=== PATIENT | female | born 1950 | race Caucasian/White ===

== ENCOUNTER → 2018-03-09 | Outpatient (CLI) | payer MEDICARE, OTHER ==
[~2018-03-09] MED LIST: ASP81TEC PO; C250T PO; CALC-697 PO; DCS100C PO; ESTR0.7510 PO; HCT25T PO; IBP600T1 PO; LSNP20T PO; METO-272 PO; MINO75CA PO; MULT1CAP27 PO; NF-LOVAZAC PO; OMEP-10 PO; TRIPLIX PO; TRM50T PO
--- NOTE | 2018-03-09 12:45 | Diagnostic Imaging Report ---
Indication: Right shoulder injury after a fall. Three views of the right shoulder show no fracture, dislocation or other acute abnormalities. Impression: Negative right shoulder. Dictated by: Dictated on workstation # [id number]
--- NOTE | 2018-03-09 12:49 | Diagnostic Imaging Report ---
Indication: Chest pain after fall. PA and lateral chest Heart size and pulmonary vascularity normal. Lungs are clear. There are no effusions or pneumothoraces. Impression: Negative chest Dictated by: Dictated on workstation # [id number]
== END ==
LOC: RAD 11:43
PROVIDERS: ATTEND Nurse Practitioner Family
DX: S49.91XA Unspecified injury of right shoulder and upper arm, initial encounter (principal); R07.9 Chest pain, unspecified; W19.XXXA Unspecified fall, initial encounter
CPT/HCPCS: 71046; 73030

== ENCOUNTER → 2018-05-01 | Outpatient (CLI) | payer MEDICARE, OTHER ==
[2018-05-01 14:44] LABS: BASOPHILS % (AUTO) 0 % (0-10); EOSINOPHILS # (AUTO) 0.3 10^3/uL (0.0-0.3); EOSINOPHILS % (AUTO) 3 % (0-10); HEMATOCRIT 38 % (35-52); HEMOGLOBIN 13.2 G/DL (11.5-16.0); LYMPHOCYTES # (AUTO) 2.9 X 10^3 (1.0-4.0); LYMPHOCYTES % (AUTO) 27 % (12-44); MEAN CORPUSCULAR HEMOGLOBIN 33 PG (25-34); MEAN CORPUSCULAR HGB CONC 35 G/DL (32-36); MEAN CORPUSCULAR VOLUME 95 FL (80-99); MEAN PLATELET VOLUME 10.7 FL (7.4-10.4); MONOCYTES # (AUTO) 0.8 X 10^3 (0.0-1.0); MONOCYTES % (AUTO) 8 % (0-12); NEUTROPHILS # (AUTO) 6.6 X 10^3 (1.8-7.8); NEUTROPHILS % (AUTO) 63 % (42-75); PLATELET COUNT 306 10^3/uL (130-400); RED BLOOD COUNT 3.98 10^6/uL (4.35-5.85); RED CELL DISTRIBUTION WIDTH 12.7 % (10.0-14.5); WHITE BLOOD COUNT 10.6 10^3/uL (4.3-11.0)
[2018-05-01 15:04] LABS: BILIRUBIN,TOTAL 0.5 MG/DL (0.1-1.0); CALCIUM 10.2 MG/DL (8.5-10.1); CREATININE SERUM 1.17 MG/DL (0.60-1.30); POTASSIUM 4.5 MMOL/L (3.6-5.0); TOTAL PROTEIN 7.8 GM/DL (6.4-8.2)
[2018-05-01 15:05] LABS: ERYTHROCYTE SEDIMENTATION RATE 40 MM/HR (0-30)
[2018-05-01 15:09] LABS: BASOPHILS % (MANUAL) 3 %; EOSINOPHILS % (MANUAL) 2 %; LYMPHOCYTES % (MANUAL) 28 %; MONOCYTES % (MANUAL) 6 %; NEUTROPHILS % (MANUAL) 61 %
[2018-05-01 15:10] LABS: RBC MORPH NORMAL
[2018-05-01 15:25] LABS: FREE T4 (FREE THYROXINE) 1.31 NG/DL (0.70-1.48)
== END ==
LOC: LAB 13:48
PROVIDERS: ATTEND Family Medicine
DX: R53.83 Other fatigue (principal); R74.8 Abnormal levels of other serum enzymes; E56.9 Vitamin deficiency, unspecified; M25.50 Pain in unspecified joint
CPT/HCPCS: 36415; 80053; 82306; 84155; 84165; 84166; 84439; 84443; 85007; 85027; 85652

== ENCOUNTER → 2018-05-04 | Outpatient (CLI) | payer MEDICARE, OTHER | LOC: LAB 07:12 | PROVIDERS: ATTEND Family Medicine | DX: E83.52 Hypercalcemia (principal) | CPT/HCPCS: 36415; 83970 ==

== ENCOUNTER → 2018-05-11 | Outpatient (CLI) | payer MEDICARE, OTHER ==
--- NOTE | 2018-05-11 12:09 | Diagnostic Imaging Report ---
INDICATION: Elevated alkaline phosphatase, high calcium count. TECHNIQUE: Skeletal survey CORRELATION STUDY: None FINDINGS: CALVARIUM: No lesion demonstrated. SPINE: Multilevel degenerative changes as well as mild scoliotic curvature. Slight eccentric thoracic kyphotic curvature with minimal anterior wedging of midthoracic vertebral bodies. THORAX: Negative chest SHOULDERS GIRDLES/UPPER EXTREMITIES: No lesion demonstrated. Advanced degenerative changes about the wrist particularly at the right radiocarpal row. PELVIS: No lesion demonstrated. LOWER EXTREMITIES: Mild degenerative changes bilateral hips. Degenerative change of the knees. There is suggestion of lucency and subcortical reaction at the proximal right fibula suspect for subacute to chronic fracture deformity. IMPRESSION: 1. No demonstrated lesion. 2. Findings at the proximal right fibula could be reflective of a subacute to chronic- appearing fracture deformity. Clinical correlation recommended. Dictated by: Dictated on workstation # [id number]
== END ==
LOC: RAD 09:43
PROVIDERS: ATTEND Family Medicine
DX: M89.8X9 Other specified disorders of bone, unspecified site (principal)
CPT/HCPCS: 77075

== ENCOUNTER → 2018-07-13 | Outpatient (CLI) | payer MEDICARE, OTHER | LOC: RAD 09:24 | PROVIDERS: ATTEND Family Medicine | DX: M25.511 Pain in right shoulder (principal); Z53.8 Procedure and treatment not carried out for other reasons ==

== ENCOUNTER → 2018-07-21 | Outpatient (CLI) | payer MEDICARE, OTHER ==
--- NOTE | 2018-07-21 17:13 | Diagnostic Imaging Report ---
PROCEDURE: MRI right joint upper extremity without contrast. TECHNIQUE: Multiplanar, multisequence non contrast-enhanced MRI of the right upper extremity was accomplished. INDICATION: Shoulder pain. FINDINGS: There are no previous MRI examinations available for comparison. The plain film examination of the right shoulder performed on 03/09/2018 failed to show any sign of an acute abnormality. On the T2 coronal series of this exam, there are vague small areas of altered signal within the substance of the rotator cuff. I suspect these findings are more likely due to tendinosis than to a tear. However, the anterior-most portion of the rotator cuff does seem thinned and irregular, and I do suspect that there is a partial tear in this region. The supraspinatus muscle itself is not retracted or bunched. There is hypertrophy of the acromioclavicular joint, and this does result in narrowing of the outlet for the supraspinatus muscle. There is also a trace amount of fluid in subacromial-subdeltoid bursa indicating there is mild inflammation present. The biceps tendon and the subscapular tendon are intact. The labrum is thinned posteriorly and most likely torn on a degenerative basis. There is no evidence for a joint effusion. There is no abnormal signal arising from the osseous structures to suggest bone edema or a fracture. IMPRESSION: 1. The anterior-most insertion of the rotator cuff is torn. However, the supraspinatus muscle is not retracted or bunched. 2. There is hypertrophy of the acromioclavicular joint, and this does result in narrowing of the outlet for the supraspinatus muscle. 3. The labrum is thinned posteriorly and most likely torn on a degenerative basis. 4. There is no evidence for an acute bony abnormality. Dictated by: Dictated on workstation # [id number]
== END ==
LOC: RAD 15:42
PROVIDERS: ATTEND Orthopaedic Surgery
DX: M75.101 Unspecified rotator cuff tear or rupture of right shoulder, not specified as traumatic (principal); M25.811 Other specified joint disorders, right shoulder; M62.89 Other specified disorders of muscle
CPT/HCPCS: 73221

== ENCOUNTER → 2019-01-10 | Outpatient (CLI) | payer MEDICARE, OTHER ==
[2019-01-10 08:09] LABS: ALBUMIN 3.7 GM/DL (3.2-4.5); BILIRUBIN,DIRECT 0.3 MG/DL (0.0-0.3); BILIRUBIN,INDIRECT 0.4 MG/DL; BILIRUBIN,TOTAL 0.7 MG/DL (0.1-1.0); TOTAL PROTEIN 7.2 GM/DL (6.4-8.2)
== END ==
LOC: LAB 07:36
PROVIDERS: ATTEND Internal Medicine Gastroenterology
DX: R93.89 Abnormal findings on diagnostic imaging of other specified body structures (principal)
CPT/HCPCS: 36415; 80076

== ENCOUNTER → 2019-03-12 | Outpatient (CLI) | payer MEDICARE, OTHER ==
[2019-03-12 10:26] LABS: BILIRUBIN,DIRECT 0.3 MG/DL (0.0-0.3); BILIRUBIN,INDIRECT 0.3 MG/DL; BILIRUBIN,TOTAL 0.6 MG/DL (0.1-1.0); TOTAL PROTEIN 7.9 GM/DL (6.4-8.2)
== END ==
LOC: LAB 09:39
PROVIDERS: ATTEND Internal Medicine Gastroenterology
DX: R93.89 Abnormal findings on diagnostic imaging of other specified body structures (principal)
CPT/HCPCS: 36415; 80076

== ENCOUNTER 2019-03-15 09:11 | Outpatient (CLI) | payer MEDICARE, OTHER ==
[~2019-03-15] VITALS: Ht 175.3 cm; Wt 93.2 kg
[2019-03-15 09:51] VITALS: BP 136/68
[2019-03-15 10:42] LABS: BASOPHILS # (AUTO) 0.1 10^3/uL (0.0-0.1); BASOPHILS % (AUTO) 1 % (0-10); EOSINOPHILS # (AUTO) 0.2 10^3/uL (0.0-0.3); EOSINOPHILS % (AUTO) 2 % (0-10); HEMATOCRIT 39 % (35-52); HEMOGLOBIN 12.8 G/DL (11.5-16.0); LYMPHOCYTES # (AUTO) 2.1 X 10^3 (1.0-4.0); LYMPHOCYTES % (AUTO) 19 % (12-44); MEAN CORPUSCULAR HEMOGLOBIN 31 PG (25-34); MEAN CORPUSCULAR HGB CONC 33 G/DL (32-36); MEAN CORPUSCULAR VOLUME 95 FL (80-99); MEAN PLATELET VOLUME 10.9 FL (7.4-10.4); MONOCYTES # (AUTO) 0.8 X 10^3 (0.0-1.0); MONOCYTES % (AUTO) 7 % (0-12); NEUTROPHILS # (AUTO) 7.8 X 10^3 (1.8-7.8); NEUTROPHILS % (AUTO) 72 % (42-75); PLATELET COUNT 304 10^3/uL (130-400); RED CELL DISTRIBUTION WIDTH 12.6 % (10.0-14.5); WHITE BLOOD COUNT 10.9 10^3/uL (4.3-11.0)
== END 2019-03-15 11:51 | disposition home or self-care (01) ==
LOC: PREOP 09:11
PROVIDERS: ATTEND Surgery
DX: Z01.812 Encounter for preprocedural laboratory examination (principal); Z11.2 Encounter for screening for other bacterial diseases; K43.2 Incisional hernia without obstruction or gangrene
CPT/HCPCS: 36415; 85025; 87081

== ENCOUNTER → 2020-06-16 | Outpatient (CLI) | payer MEDICARE, OTHER ==
[~2020-06-16] MED LIST changes: +ACHD5005 PO; +DOCU-143 PO
--- NOTE | 2020-06-16 11:20 | Diagnostic Imaging Report ---
INDICATION: Diarrhea and vomiting as well as weakness. TIME OF EXAM: 10:39 AM Comparison is made with prior chest from 03/09/2018. FINDINGS: The heart size is normal. The pulmonary vascularity is unremarkable. The lungs are clear. No infiltrate, effusion or pneumothorax is detected. IMPRESSION: No acute cardiopulmonary process is detected. Dictated by: Dictated on workstation # [id number]
--- NOTE | 2020-06-16 11:26 | Diagnostic Imaging Report ---
INDICATION: Diarrhea and vomiting as well as weakness. TIME OF EXAM: 10:41 AM. FINDINGS: The bowel gas pattern is unremarkable. No bowel obstruction is identified. No free air is detected. No pathologic calcifications are identified. IMPRESSION: No acute abnormality is detected. Dictated by: Dictated on workstation # [id number]
== END ==
LOC: RAD 10:18
PROVIDERS: ATTEND Nurse Practitioner Family
DX: R19.7 Diarrhea, unspecified (principal); R11.10 Vomiting, unspecified; R53.1 Weakness; R10.9 Unspecified abdominal pain; R05 Cough
CPT/HCPCS: 71046; 74019

== ENCOUNTER 2020-06-17 16:36 | Outpatient (CLI) | payer MEDICARE, OTHER ==
[~2020-06-17] VITALS: Ht 172.7 cm; Wt 85.5 kg
[2020-06-17] MEDS ORDERED: NS IV 1000 ML 1,000 ML ONE (17:26)
--- NOTE | 2020-06-17 17:26 | Diagnostic Imaging Report ---
PROCEDURE: CT abdomen and pelvis without contrast. TECHNIQUE: Multiple contiguous axial images were obtained through the abdomen and pelvis without the use of intravenous contrast. Auto Exposure Controls were utilized during the CT exam to meet ALARA standards for radiation dose reduction. INDICATION: Midabdominal pain with dehydration and diarrhea for two weeks. COMPARISON: Correlation is made with prior CT from 09/08/2012. FINDINGS: The lung bases are clear. No discrete liver mass is identified. There is some mild distention to the gallbladder but no definite gallstones are identified. There is no biliary ductal dilatation. Pancreas and spleen are unremarkable. Right adrenal gland is unremarkable. The low-density lesions within the left adrenal gland are again noted and again suggestive of adenomas. There are cortical low densities involving bilateral kidneys, likely representing cysts. The largest on the lateral aspect of the left kidney is slightly increased measuring 2.4 cm compared with 1.9 cm. No calculi are detected. There is no hydronephrosis. Aorta is calcified but nonaneurysmal. Bowel loops are normal in caliber. There is no obstruction. There are postsurgical changes near the rectosigmoid junction. There is some mild diverticulosis of the sigmoid and descending colon but no evidence of acute diverticulitis. No free fluid is seen. There is no fluid collection. Bladder is decompressed. The bony structures are nonacute. IMPRESSION: 1. Bilateral renal cysts. 2. Uncomplicated diverticulosis. 3. Mildly prominent gallbladder. If there is concern for gallbladder pathology, gallbladder ultrasound would be useful for further evaluation. No other significant abnormality is seen. Dictated by: Dictated on workstation # [id number]
[2020-06-17 17:45] VITALS: BP 123/71
[2020-06-17] MEDS ORDERED: NS IV 1000 ML 1,000 ML IV SCH (17:45)
== END 2020-06-17 19:05 | disposition home or self-care (01) ==
LOC: SDC 16:36
PROVIDERS: ATTEND Family Medicine
DX: E86.0 Dehydration (principal); K57.30 Diverticulosis of large intestine without perforation or abscess without bleeding; N28.1 Cyst of kidney, acquired
CPT/HCPCS: 74176; 96360

== ENCOUNTER 2020-06-24 05:35 | Outpatient (CLI) | payer MEDICARE, OTHER ==
[~2020-06-24] VITALS: Ht 175.3 cm; Wt 85.9 kg
[2020-06-24] MEDS ORDERED: ATOR20TA66 PO (12:07)
[2020-06-24] MEDS ORDERED: LISI1TAB46 PO (12:07)
[2020-06-24] MEDS ORDERED: CALC-904 PO (12:07)
[2020-06-24] MEDS ORDERED: METO50TA7 PO (12:07)
[2020-06-24] MEDS ORDERED: ASCO500T7 PO (12:07)
[2020-06-24] MEDS ORDERED: MULT-567 PO (12:07)
[2020-06-24] MEDS ORDERED: ESTR1TAB24 PO (12:07)
[2020-06-24] MEDS ORDERED: CETI10TA17 PO (12:07)
[2020-06-24] MEDS ORDERED: ZINC50TA58 PO (12:07)
[2020-06-24] MEDS ORDERED: OMEP40CA27 PO (12:07)
[2020-06-24] MEDS ORDERED: ASPI-999 PO (12:07)
== END 2020-06-24 12:25 | disposition home or self-care (01) ==
LOC: PREOP 05:35
PROVIDERS: ATTEND Surgery
DX: Z01.818 Encounter for other preprocedural examination (principal)

== ENCOUNTER → 2020-12-09 | Outpatient (CLI) | payer MEDICARE, OTHER ==
[~2020-12-09] MED LIST changes: +ASCO500T7 PO; +ASPI-999 PO; +ATOR20TA66 PO; +CALC-904 PO; +CETI10TA17 PO; +ESTR1TAB24 PO; +LISI1TAB46 PO; +METO50TA7 PO; +MULT-567 PO; +OMEP40CA27 PO; +ZINC50TA58 PO
[2020-12-09 15:30] LABS: BASOPHILS # (AUTO) 0.1 10^3/uL (0.0-0.1); BASOPHILS % (AUTO) 0 % (0-10); EOSINOPHILS # (AUTO) 0.1 10^3/uL (0.0-0.3); EOSINOPHILS % (AUTO) 1 % (0-10); HEMATOCRIT 36 % (35-52); HEMOGLOBIN 11.6 g/dL (11.5-16.0); LYMPHOCYTES # (AUTO) 2.2 X 10^3 (1.0-4.0); LYMPHOCYTES % (AUTO) 13 % (12-44); MEAN CORPUSCULAR HEMOGLOBIN 30 pg (25-34); MEAN CORPUSCULAR HGB CONC 32 g/dL (32-36); MEAN CORPUSCULAR VOLUME 93 fL (80-99); MEAN PLATELET VOLUME 9.9 fL (9.0-12.2); MONOCYTES # (AUTO) 0.9 X 10^3 (0.0-1.0); MONOCYTES % (AUTO) 5 % (0-12); NEUTROPHILS # (AUTO) 13.9 X 10^3 (1.8-7.8); NEUTROPHILS % (AUTO) 81 % (42-75); PLATELET COUNT 409 10^3/uL (130-400); WHITE BLOOD COUNT 17.2 10^3/uL (4.3-11.0)
[2020-12-09 15:41] LABS: BAND NEUTROPHILS 2 %; BASOPHILS % (MANUAL) 1 %; EOSINOPHILS % (MANUAL) 1 %; LYMPHOCYTES % (MANUAL) 15 %; MONOCYTES % (MANUAL) 2 %; NEUTROPHILS % (MANUAL) 79 %; RBC MORPH NORMAL
[2020-12-09 19:06] LABS: ERYTHROCYTE SEDIMENTATION RATE 122 MM/HR (0-30)
== END ==
LOC: LAB 15:05
PROVIDERS: ATTEND Family Medicine
DX: D72.829 Elevated white blood cell count, unspecified (principal)
CPT/HCPCS: 36415; 85007; 85027; 85652; 86141

== ENCOUNTER → 2020-12-11 | Outpatient (CLI) | payer MEDICARE, OTHER ==
--- NOTE | 2020-12-11 15:44 | Diagnostic Imaging Report ---
PROCEDURE: US gallbladder. TECHNIQUE: Multiple real-time grayscale images were obtained over the right upper quadrant in various projections. INDICATION: Right upper quadrant pain. FINDINGS: Liver is normal in size at 14 cm. Gallbladder does contain a small amount of sludge. No wall thickening is seen. There is no pericholecystic fluid detected. Extrahepatic bile duct is minimally prominent at 8 mm. Pancreas unremarkable. Aorta is nonaneurysmal. IVC is patent. Right kidney does contain a 17 mm x 20 mm cyst in the upper pole. No calculi or hydronephrosis is seen. There is no ascites. IMPRESSION: 1. Gallbladder sludge without evidence of gallstone or acute cholecystitis. 2. Right renal cyst. Dictated by: Dictated on workstation # [id number]
== END ==
LOC: RAD 14:14
PROVIDERS: ATTEND Internal Medicine Hematology & Oncology
DX: N28.1 Cyst of kidney, acquired (principal); K82.8 Other specified diseases of gallbladder
CPT/HCPCS: 76705

== ENCOUNTER 2020-12-16 05:41 | Outpatient (CLI) | payer MEDICARE, OTHER ==
[~2020-12-16] VITALS: Ht 175.3 cm; Wt 80.5 kg
[2020-12-16] MEDS ORDERED: URSO250T12 PO ×2 (14:33)
[2020-12-16] MEDS ORDERED: VITA400T7 PO ×2 (14:35)
== END 2020-12-16 14:50 | disposition home or self-care (01) ==
LOC: PREOP 05:41
PROVIDERS: ATTEND Surgery
DX: Z01.818 Encounter for other preprocedural examination (principal)

== ENCOUNTER 2020-12-18 09:04 | Day surgery (SDC) | payer MEDICARE, OTHER ==
[~2020-12-18] VITALS: Ht 175.3 cm; Wt 80.5 kg
[2020-12-18] VITALS (11 sets, daily range): BP systolic 98–145; BP diastolic 45–69
[~2020-12-18 09:04] MED LIST changes: +URSO250T12 PO; +VITA400T7 PO
[2020-12-18] MEDS ORDERED: fentaNYL INJ 100 MCG/2 ML AMP ONE (09:14)
[2020-12-18] MEDS ORDERED: proPOfol 200 MG/20 ML (DIPRIVAN) VIAL IV ONE (09:14)
[2020-12-18] MEDS ORDERED: ONDANSETRON 4 MG/2 ML (SDV) Z0FRAN ONE (09:14)
[2020-12-18] MEDS ORDERED: LIDOCAINE PF 2% 5 ML (XYLOCAINE) VIAL ONE (09:14)
[2020-12-18] MEDS ORDERED: ROCURONIUM 10 MG/ML 5 ML SYRINGE IV ONE (09:17)
[2020-12-18] MEDS ORDERED: SEVOFLURANE (ULTANE) 15 ML INHAL SOLN ONE ×2 (09:17→11:33)
[2020-12-18] MEDS ORDERED: IOPAMIDOL 61% 30 ML (ISOVUE 300) VIAL ONE (09:23)
[2020-12-18] MEDS: LACTATED RINGERS 1,000 ML IV PRN ×2 (09:29→10:35)
[2020-12-18] MEDS ORDERED: CLINDAMYCIN 600 MG/50 ML IVPB 50 ML IV ONE (09:30)
[2020-12-18] MEDS ORDERED: MIDAZOLAM 2 MG/2 ML (VERSED) VIAL ONE (09:59)
[2020-12-18] MEDS ORDERED: LIDOCAINE/EPI 1%-1:100,000 (XYLOCAINE) 20ML INJ ONE (10:00)
--- NOTE | 2020-12-18 10:03 | Progress Note-Pre Operative ---
Pre-Operative Progress Note H&P Reviewed The H&P was reviewed, patient examined and no changes noted. Date Seen by Provider: Dec 18, 2020 Time Seen by Provider: 10:03 Date H&P Reviewed: Dec 18, 2020 Time H&P Reviewed: 10:03 Pre-Operative Diagnosis: symptomatic cholelithiasis BELLA DELGADO DO Dec 18, 2020 10:03
[2020-12-18] MEDS ORDERED: GLYCOPYRROLATE 0.2 MG/ML (ROBINUL) 2 ML VIAL ONE (11:20)
[2020-12-18] MEDS ORDERED: NEOSTIGMINE 3 MG/3 ML VIAL ONE (11:20)
--- NOTE | 2020-12-18 11:31 | Progress Note-Post Operative ---
Post-Operative Progess Note Surgeon (s)/Deputy Clerk (s) Surgeon BELLA DELGADO DO Deputy Clerk: Dr. Alejandro to assist in retraction dissection and closure Pre-Operative Diagnosis symptomatic cholelithiasis Post-Operative Diagnosis symptomatic cholelithiasis and hydrops gallbladder Procedure & Operative Findings Date of Procedure 12/18/20 Procedure Performed/Findings PROCEDURE: Laparoscopic cholecystectomy with intraoperative cholangiogram. COMPLICATIONS: None. PROCEDURE: The patient was taken to the operating suite and was prepped and draped in sterile fashion. A surgical pause was performed. Left upper quadrant, a 12 mm incision was made. Dissection was taken down to the fascia, which was then scored and grasped with a Lennox and the abdomen was then entered. Pneumoperitoneum was achieved. A 5mm trochar place in the right upper quadrant. Multiple intrabdominal adhesions were taken down. A second 5 mm trocar was placed in the right upper quadrant and a 5 mm trocar was placed just above the umbilicus. The gallbladder was then grasped and elevated. It was dilated and small hole to decompress it. Clear fluid drained. The cystic duct, and cystic artery were then dissected out. Clip was placed on the distal portion of the cystic duct which was then partially transected. An arrow catheter was inserted into the duct. The cholangiogram was then performed. Appearing to have slight narrowing of the common bile duct and do to leakin of contrast difficult to get contrast into the hepatic ducts. No filing defects seen and contrast made its way into the duodenum. Catheter removed. Clips were placed on proximal portion of the cystic duct along with endoloop due to dilated cystic duct and then the duct was then transected. Clips were placed along the proximal and distal portion of the cystic artery which was then transected. Hook cautery was used to dissect the gallbladder from the gallbladder fossa achieving hemostasis. The gallbladder was placed in an Endobag and removed through the 12 mm trocar site. The abdomen was then reinspected. Copious amounts of irrigation were used to irrigate the abdomen and there were no signs of active bleeding. Hemostasis had been achieved. The 12 mm fascial defect was then closed with 0 Vicryl suture that had been placed in a [id number] fashion. The abdomen was then desufflated, the trocars were removed. The abdomen was then washed and dried. The skin was then closed using 4-0 Monocryl in a subcuticular fashion. The abdomen was washed and dried and Skin Affix was place over incisions. Patient tolerated the procedure well without any complications and was taken to the recovery room in stable condition. Anesthesia Type general Estimated Blood Loss Estimated blood loss (mL): minimal Specimens/Packing Specimens Removed gallbladder BELLA DELGADO DO Dec 18, 2020 11:31
[2020-12-18] MEDS ORDERED: ACHD5005 PO ×2 (11:35)
[2020-12-18] MEDS ORDERED: DOCU-143 PO ×2 (11:35)
--- NOTE | 2020-12-18 11:38 | Discharge Inst-Simple/Standard ---
Discharge Inst-Standard Discharge Medications New, Converted or Re-Newed RX: RX on Chart Patient Instructions/Follow Up Plan of Care/Instructions/FU: 2-3 weeks [place] Activity as Tolerated: No Discharge Diet: Regular Diet Other Inst to Patient Follow up Appt: Make appointment for 2-3 weeks. Instructions: No lifting greater than 10 pounds. No strenuous activity. May shower in 24 hours, no tub bath or soaking. Use incentive spirometer at home as directed. No Smoking Skin/Wound Care: You have special glue over incision, it will fall off on it's own. Symptoms to Report: Appetite Changes, Extremity Discoloration, Numbness/Tingling, Swelling Increased, Bleeding Excessive, Eyesight Changes, Pain Increased, Urine Color Change, Constipation(Persistent), Fever over 101 degree F, Pain/Pressure in chest, Urinating Difficulty, Cough Up/Vomit Blood, Heart Beat Irreg/Pounding, Pain/Pressure in jaw, Vaginal Bleeding Increase, Cramps in feet or legs, Lightheadedness, Pain/Pressure in shoulder, Diarrhea(Persistent), Memory Changes Suddenly, Questions/Concerns, Weight gain consecutive days, Dizziness/Fainting, Nausea/Vomiting, Shortness of Breath, Weight gain over 2 pounds. If eyes or skin turn yellow notify physician. If questions or concerns contact your physician Or seek help at emergency department. BELLA DELGADO DO Dec 18, 2020 11:38
[2020-12-18] MEDS ORDERED: HYDROmorphone 2 MG/ML VIAL (DILAUDID) IV ONE (11:45)
[2020-12-18] MEDS ORDERED: ONDANSETRON 4 MG/2 ML (SDV) Z0FRAN IVP PRN (11:45)
--- NOTE | 2020-12-18 13:07 | Diagnostic Imaging Report ---
INDICATION: Fluoroscopy during intraoperative cholangiogram. Fluoroscopy was provided in the OR during intraoperative cholangiogram. 30 seconds of fluoroscopic time was utilized. 60 images were obtained. There is poor opacification of the biliary system. There is some contrast within the 2nd portion of the duodenum. IMPRESSION: Fluoroscopy during intraoperative cholangiogram. Dictated by: Dictated on workstation # [id number]
--- NOTE | 2020-12-18 14:33 | Anesthesia-General Post-Op ---
General Patient Condition Mental Status/LOC: Same as Preop Cardiovascular: Satisfactory Nausea/Vomiting: Absent Respiratory: Satisfactory Pain: Controlled Complications: Absent Post Op Complications Complications None Follow Up Care/Instructions Patient Instructions None needed. Anesthesia/Patient Condition Patient Condition Patient is doing well, no complaints, stable vital signs, no apparent adverse anesthesia problems. No complications reported per nursing. D/C home per [facility] Criteria: Yes SHAUNNA MCCOY CRNA Dec 18, 2020 14:33
== END 2020-12-18 14:15 | disposition home or self-care (01) ==
LOC: SDC 09:04
PROVIDERS: ATTEND Surgery
DX: K80.10 Calculus of gallbladder with chronic cholecystitis without obstruction (principal); D13.5 Benign neoplasm of extrahepatic bile ducts; I10 Essential (primary) hypertension; I48.91 Unspecified atrial fibrillation; M19.90 Unspecified osteoarthritis, unspecified site; E66.9 Obesity, unspecified; Z68.26 Body mass index [BMI] 26.0-26.9, adult; Z79.82 Long term (current) use of aspirin; Z79.02 Long term (current) use of antithrombotics/antiplatelets; Z79.899 Other long term (current) drug therapy; Z88.1 Allergy status to other antibiotic agents; Z88.0 Allergy status to penicillin; Z90.710 Acquired absence of both cervix and uterus; Z87.891 Personal history of nicotine dependence; Z80.9 Family history of malignant neoplasm, unspecified
CPT/HCPCS: 76000; 87081; 88304

== ENCOUNTER 2021-01-22 12:25 | Outpatient (RCR) | payer MEDICARE, OTHER ==
[2020-12-11 14:07] LABS: BASOPHILS # (AUTO) 0.1 10^3/uL (0.0-0.1); BASOPHILS % (AUTO) 0 % (0-10); EOSINOPHILS # (AUTO) 0.2 10^3/uL (0.0-0.3); EOSINOPHILS % (AUTO) 1 % (0-10); HEMATOCRIT 37 % (35-52); LYMPHOCYTES # (AUTO) 2.2 10^3/uL (1.0-4.0); LYMPHOCYTES % (AUTO) 14 % (12-44); MEAN CORPUSCULAR HEMOGLOBIN 30 pg (25-34); MEAN CORPUSCULAR HGB CONC 32 g/dL (32-36); MEAN CORPUSCULAR VOLUME 92 fL (80-99); MEAN PLATELET VOLUME 10.1 fL (9.0-12.2); MONOCYTES % (AUTO) 7 % (0-12); NEUTROPHILS % (AUTO) 77 % (42-75); PLATELET COUNT 392 10^3/uL (130-400); WHITE BLOOD COUNT 15.6 10^3/uL (4.3-11.0)
[2021-01-22 12:53] LABS: BASOPHILS # (AUTO) 0.1 10^3/uL (0.0-0.1); BASOPHILS % (AUTO) 0 % (0-10); EOSINOPHILS # (AUTO) 0.2 10^3/uL (0.0-0.3); EOSINOPHILS % (AUTO) 1 % (0-10); HEMATOCRIT 33 % (35-52); HEMOGLOBIN 10.8 g/dL (11.5-16.0); LYMPHOCYTES # (AUTO) 2.4 10^3/uL (1.0-4.0); LYMPHOCYTES % (AUTO) 16 % (12-44); MEAN CORPUSCULAR HEMOGLOBIN 30 pg (25-34); MEAN CORPUSCULAR HGB CONC 32 g/dL (32-36); MEAN CORPUSCULAR VOLUME 92 fL (80-99); MEAN PLATELET VOLUME 9.9 fL (9.0-12.2); MONOCYTES # (AUTO) 0.9 10^3/uL (0.0-1.0); MONOCYTES % (AUTO) 6 % (0-12); NEUTROPHILS # (AUTO) 11.7 10^3/uL (1.8-7.8); NEUTROPHILS % (AUTO) 76 % (42-75); PLATELET COUNT 390 10^3/uL (130-400); WHITE BLOOD COUNT 15.3 10^3/uL (4.3-11.0)
== END 2021-03-11 | disposition home or self-care (01) ==
LOC: ONC 12:25
PROVIDERS: ATTEND Internal Medicine Hematology & Oncology
DX: D72.829 Elevated white blood cell count, unspecified (principal); K80.20 Calculus of gallbladder without cholecystitis without obstruction; Z79.02 Long term (current) use of antithrombotics/antiplatelets
CPT/HCPCS: 85025; G0463; 83615; 99213; 99214

== ENCOUNTER 2021-03-26 12:52 | Outpatient (RCR) | payer MEDICARE, OTHER ==
[~2021-03-26 12:52] MED LIST changes: -OMEP40CA27 PO; +OMEP40CA6 PO
[2021-03-26 13:02] LABS: BASOPHILS # (AUTO) 0.1 10^3/uL (0.0-0.1); BASOPHILS % (AUTO) 0 % (0-10); EOSINOPHILS % (AUTO) 0 % (0-10); HEMATOCRIT 35 % (35-52); HEMOGLOBIN 11.5 g/dL (11.5-16.0); LYMPHOCYTES # (AUTO) 1.7 10^3/uL (1.0-4.0); LYMPHOCYTES % (AUTO) 10 % (12-44); MEAN CORPUSCULAR HEMOGLOBIN 30 pg (25-34); MEAN CORPUSCULAR HGB CONC 33 g/dL (32-36); MEAN CORPUSCULAR VOLUME 92 fL (80-99); MEAN PLATELET VOLUME 10.2 fL (9.0-12.2); MONOCYTES # (AUTO) 0.8 10^3/uL (0.0-1.0); MONOCYTES % (AUTO) 5 % (0-12); NEUTROPHILS # (AUTO) 14.2 10^3/uL (1.8-7.8); NEUTROPHILS % (AUTO) 84 % (42-75); PLATELET COUNT 375 10^3/uL (130-400); WHITE BLOOD COUNT 16.9 10^3/uL (4.3-11.0)
== END 2021-04-17 09:39 | disposition home or self-care (01) ==
LOC: ONC 12:52
PROVIDERS: ATTEND Internal Medicine Hematology & Oncology
DX: D72.829 Elevated white blood cell count, unspecified (principal); I10 Essential (primary) hypertension; E66.9 Obesity, unspecified; Z79.899 Other long term (current) drug therapy; Z87.891 Personal history of nicotine dependence
CPT/HCPCS: 83615; 85025; G0463; 99213

== ENCOUNTER 2021-07-22 14:51 | Outpatient (RCR) | payer MEDICARE, OTHER ==
[2021-07-22 15:01] LABS: BASOPHILS # (AUTO) 0.1 10^3/uL (0.0-0.1); BASOPHILS % (AUTO) 0 % (0-10); EOSINOPHILS # (AUTO) 0.1 10^3/uL (0.0-0.3); EOSINOPHILS % (AUTO) 1 % (0-10); HEMATOCRIT 33 % (35-52); HEMOGLOBIN 11.1 g/dL (11.5-16.0); LYMPHOCYTES # (AUTO) 2.5 10^3/uL (1.0-4.0); LYMPHOCYTES % (AUTO) 13 % (12-44); MEAN CORPUSCULAR HEMOGLOBIN 31 pg (25-34); MEAN CORPUSCULAR HGB CONC 34 g/dL (32-36); MEAN CORPUSCULAR VOLUME 94 fL (80-99); MEAN PLATELET VOLUME 10.3 fL (9.0-12.2); MONOCYTES % (AUTO) 5 % (0-12); NEUTROPHILS # (AUTO) 14.7 10^3/uL (1.8-7.8); NEUTROPHILS % (AUTO) 80 % (42-75); PLATELET COUNT 350 10^3/uL (130-400); WHITE BLOOD COUNT 18.4 10^3/uL (4.3-11.0)
== END 2021-10-02 | disposition home or self-care (01) ==
LOC: ONC 14:51
PROVIDERS: ATTEND Internal Medicine Hematology & Oncology
DX: D72.829 Elevated white blood cell count, unspecified (principal); D64.9 Anemia, unspecified; E66.9 Obesity, unspecified
CPT/HCPCS: 85025; G0463; 99213

== ENCOUNTER → 2021-11-30 | Outpatient (CLI) | payer MEDICARE, OTHER ==
[~2021-11-30] MED LIST changes: +ACET-93 PO; +ATOR10TA66 PO; +CALC600T91 PO; +CHOL20002 PO; +DEXA1TAB PO; +DOCU100T2 PO; +ESTR0.5T PO; +HYOS0.1296 PO; +IBUP-1773 PO; +MECL-215 PO; +MTP100TCR PO; +MTP25TSR PO; +NYST1000 PO; +POLY17PO6 PO; +URSO300C3 PO; +VITA-189 PO; +VITA1CAP PO
[2021-11-30 16:35] LABS: BASOPHILS % (AUTO) 0 % (0-10); EOSINOPHILS # (AUTO) 0.1 10^3/uL (0.0-0.3); EOSINOPHILS % (AUTO) 0 % (0-10); HEMATOCRIT 36 % (35-52); HEMOGLOBIN 11.5 g/dL (11.5-16.0); LYMPHOCYTES # (AUTO) 1.4 10^3/uL (1.0-4.0); LYMPHOCYTES % (AUTO) 7 % (12-44); MEAN CORPUSCULAR HEMOGLOBIN 31 pg (25-34); MEAN CORPUSCULAR HGB CONC 32 g/dL (32-36); MEAN CORPUSCULAR VOLUME 97 fL (80-99); MEAN PLATELET VOLUME 10.3 fL (9.0-12.2); MONOCYTES % (AUTO) 5 % (0-12); NEUTROPHILS # (AUTO) 16.8 10^3/uL (1.8-7.8); NEUTROPHILS % (AUTO) 86 % (42-75); PLATELET COUNT 280 10^3/uL (130-400); WHITE BLOOD COUNT 19.4 10^3/uL (4.3-11.0)
[2021-11-30 16:36] LABS: BILIRUBIN,URINE NEGATIVE (NEGATIVE); CLARITY,URINE CLEAR; COLOR,URINE YELLOW; GLUCOSE, URINE (UA) NEGATIVE (NEGATIVE); KETONES,URINE NEGATIVE (NEGATIVE); LEUKOCYTE ESTERASE ,URINE NEGATIVE (NEGATIVE); NITRITE,URINE NEGATIVE (NEGATIVE); PROTEIN,URINE NEGATIVE (NEGATIVE)
--- NOTE | 2021-11-30 16:41 | Diagnostic Imaging Report ---
INDICATION: Left lower quadrant abdominal pain. COMPARISON: 06/16/2020. FINDINGS: Supine and upright views the abdomen demonstrate nonobstructive small bowel gas pattern. Moderate amount of air and stool are seen scattered throughout the colon. No abnormal air-fluid levels or large collection of free intraperitoneal air is seen. No abnormal extraosseous calcifications or radiopaque foreign bodies are identified. Bony structures are age-appropriate. IMPRESSION: 1. Nonobstructive small bowel gas pattern. 2. Moderate colonic air and stool. Please correlate for constipation. Dictated by: Dictated on workstation # [id number]
[2021-11-30 16:45] LABS: ALBUMIN 3.2 GM/DL (3.2-4.5)
[2021-11-30 16:46] LABS: POTASSIUM 3.3 MMOL/L (3.6-5.0)
[2021-11-30 16:47] LABS: CALCIUM 9.3 MG/DL (8.5-10.1)
[2021-11-30 16:48] LABS: TOTAL PROTEIN 7.2 GM/DL (6.4-8.2)
[2021-11-30 16:50] LABS: BILIRUBIN,TOTAL 0.7 MG/DL (0.1-1.0)
[2021-11-30 16:51] LABS: CREATININE SERUM 0.77 MG/DL (0.60-1.30)
[2021-11-30 18:46] LABS: BACTERIA,URINE FEW /HPF; SQUAMOUS EPITHELIAL CELL,UR 0-2 /HPF
[2021-11-30 19:39] LABS: LYMPHOCYTES % (MANUAL) 6 %; MONOCYTES % (MANUAL) 4 %; NEUTROPHILS % (MANUAL) 90 %; RBC MORPH NORMAL
[2021-11-30 19:41] LABS: ERYTHROCYTE SEDIMENTATION RATE 35 MM/HR (0-30)
== END ==
LOC: RAD 16:00
PROVIDERS: ATTEND Family Medicine
DX: R10.32 Left lower quadrant pain (principal)
CPT/HCPCS: 36415; 74019; 80053; 81000; 85007; 85027; 85652

== ENCOUNTER 2022-04-29 10:27 | Outpatient (RCR) | payer MEDICARE, OTHER | END 2022-05-02 | disposition home or self-care (01) | PROVIDERS: ATTEND Family Medicine | DX: R53.1 Weakness (principal); R53.81 Other malaise; I10 Essential (primary) hypertension ==

== ENCOUNTER 2022-05-17 08:32 | Outpatient (RCR) | payer MEDICARE, OTHER | END 2022-06-02 | disposition home or self-care (01) | PROVIDERS: ATTEND Family Medicine | DX: R53.1 Weakness (principal); R53.81 Other malaise; I10 Essential (primary) hypertension ==

== ENCOUNTER → 2022-08-23 | Outpatient (CLI) | payer MEDICARE, OTHER | LOC: WOUNDCARE 10:14 | PROVIDERS: ATTEND Family Medicine | DX: E44.0 Moderate protein-calorie malnutrition (principal); E55.9 Vitamin D deficiency, unspecified; L89.153 Pressure ulcer of sacral region, stage 3; K58.0 Irritable bowel syndrome with diarrhea; M62.81 Muscle weakness (generalized); R63.4 Abnormal weight loss; Z68.20 Body mass index [BMI] 20.0-20.9, adult | CPT/HCPCS: 11042; 82306; 82607; 82728; 82746; 83540; 83550; 84134; A6197; A6212; G0463; 36415 ==

== ENCOUNTER → 2022-08-30 | Outpatient (CLI) | payer MEDICARE, OTHER | LOC: WOUNDCARE 15:09 | PROVIDERS: ATTEND Family Medicine | DX: I96 Gangrene, not elsewhere classified (principal); L89.153 Pressure ulcer of sacral region, stage 3; E44.0 Moderate protein-calorie malnutrition; K58.0 Irritable bowel syndrome with diarrhea; E55.9 Vitamin D deficiency, unspecified; M62.81 Muscle weakness (generalized); R63.4 Abnormal weight loss; Z68.20 Body mass index [BMI] 20.0-20.9, adult | CPT/HCPCS: A6212; G0463; 99212 ==

== ENCOUNTER → 2022-09-06 | Outpatient (CLI) | payer MEDICARE, OTHER | LOC: WOUNDCARE 14:24 | PROVIDERS: ATTEND Family Medicine | DX: L89.153 Pressure ulcer of sacral region, stage 3 (principal); E44.0 Moderate protein-calorie malnutrition; K58.0 Irritable bowel syndrome with diarrhea; E55.9 Vitamin D deficiency, unspecified; M62.81 Muscle weakness (generalized); R63.4 Abnormal weight loss; I96 Gangrene, not elsewhere classified | CPT/HCPCS: 11042; A6212; G0463 ==

== ENCOUNTER → 2022-09-13 | Outpatient (CLI) | payer MEDICARE, OTHER | LOC: WOUNDCARE 13:19 | PROVIDERS: ATTEND Family Medicine | DX: L89.153 Pressure ulcer of sacral region, stage 3 (principal); E44.0 Moderate protein-calorie malnutrition; R63.4 Abnormal weight loss; K58.0 Irritable bowel syndrome with diarrhea; E55.9 Vitamin D deficiency, unspecified; M62.81 Muscle weakness (generalized); B37.2 Candidiasis of skin and nail; I96 Gangrene, not elsewhere classified | CPT/HCPCS: A6212; G0463; 99212 ==

== ENCOUNTER → 2022-09-21 | Outpatient (CLI) | payer MEDICARE, OTHER | LOC: WOUNDCARE 08:12 | PROVIDERS: ATTEND Family Medicine | DX: L89.153 Pressure ulcer of sacral region, stage 3 (principal); E44.0 Moderate protein-calorie malnutrition; R63.4 Abnormal weight loss; K58.0 Irritable bowel syndrome with diarrhea; E55.9 Vitamin D deficiency, unspecified; M62.81 Muscle weakness (generalized); I96 Gangrene, not elsewhere classified | CPT/HCPCS: 11042; 85652; 86141; A6212; G0463; 36415 ==

== ENCOUNTER → 2022-09-23 | Outpatient (CLI) | payer MEDICARE, OTHER ==
[~2022-09-23] MED LIST changes: +GADOTERATE 0.5 MMOL/ML (CLARISCAN) 15 ML VIAL IV ONE
--- NOTE | 2022-09-23 10:20 | Diagnostic Imaging Report ---
Procedure: MRI pelvis with and without contrast. Technique: Multiplanar, multisequence MRI of the pelvis was performed with and without contrast. Date: September 23, 2022. Indication: 72-year-old female, stage III ulcer. Evaluation for osteomyelitis. Comparison: CT abdomen and pelvis November 17, 2021. Findings: There is a skin defect posteriorly superficial to the coccyx. This does not directly contact bone. There is no T1 marrow signal loss or bone destruction. There is also no identified marrow edema. The sacroiliac joint spaces are well preserved without joint effusion or bone erosion. There is no ankylosis across either sacroiliac joint. There is an annular tear at L4-L5 with diffuse disc bulge. There appears to be mild bilateral foraminal narrowing at this level without high-grade spinal stenosis. There is no large hip joint effusion. There is no identified focal fluid collection or abscess. Impression: 1. Soft tissue ulcer posteriorly without evidence of osteomyelitis. 2. No identified focal fluid collection or abscess. Dictated by: Dictated on workstation # [id number]
== END ==
LOC: RAD 08:45
PROVIDERS: ATTEND Family Medicine
DX: L89.153 Pressure ulcer of sacral region, stage 3 (principal); E44.0 Moderate protein-calorie malnutrition; R63.4 Abnormal weight loss; K58.0 Irritable bowel syndrome with diarrhea; E55.9 Vitamin D deficiency, unspecified; M62.81 Muscle weakness (generalized)
CPT/HCPCS: 72197

== ENCOUNTER → 2022-09-28 | Outpatient (CLI) | payer MEDICARE, OTHER ==
[~2022-09-28] MED LIST changes: -GADOTERATE 0.5 MMOL/ML (CLARISCAN) 15 ML VIAL IV ONE
== END ==
LOC: WOUNDCARE 13:25
PROVIDERS: ATTEND Family Medicine
DX: I96 Gangrene, not elsewhere classified (principal); L89.153 Pressure ulcer of sacral region, stage 3; E44.0 Moderate protein-calorie malnutrition; R63.4 Abnormal weight loss; K58.0 Irritable bowel syndrome with diarrhea; E55.9 Vitamin D deficiency, unspecified; M62.81 Muscle weakness (generalized)
CPT/HCPCS: 99212

== ENCOUNTER → 2022-10-05 | Outpatient (CLI) | payer MEDICARE, OTHER | LOC: WOUNDCARE 13:25 | PROVIDERS: ATTEND Family Medicine | DX: E44.0 Moderate protein-calorie malnutrition (principal); K58.0 Irritable bowel syndrome with diarrhea; E55.9 Vitamin D deficiency, unspecified; M62.81 Muscle weakness (generalized); R63.4 Abnormal weight loss | CPT/HCPCS: 99212 ==

== ENCOUNTER → 2022-11-16 | Outpatient (CLI) | payer MEDICARE, OTHER ==
--- NOTE | 2022-11-16 14:42 | Diagnostic Imaging Report ---
PROCEDURE: CT abdomen and pelvis without contrast. TECHNIQUE: Multiple contiguous axial images were obtained through the abdomen and pelvis without the use of intravenous contrast. Auto Exposure Controls were utilized during the CT exam to meet ALARA standards for radiation dose reduction. INDICATION: Diffuse abdominal pain, weight loss and colitis. COMPARISON: Comparison is made with prior CT from 11/17/2021. FINDINGS: The lung bases are clear. The area of linear low attenuation involving the left lobe of liver seen previously has increased. This has the appearance of dilated biliary ducts in the left lobe. Right lobe the biliary system is unremarkable. There is minimal pneumobilia present. Pancreas and spleen are unremarkable. There is some low-density enlargement to the left adrenal gland, similar to prior exam, perhaps on the basis of adenoma. Right adrenal gland is unremarkable. Kidneys contain cortical low-attenuation lesions, consistent with cysts. There is also a nonobstructing calculus in the upper pole of the right kidney. Aorta is heavily calcified but nonaneurysmal. Bowel loops are normal in caliber. There are postop changes of the sigmoid colon. There is diverticulosis of the descending colon but no evidence of acute diverticulitis. No free fluid in the abdomen or pelvis is seen. Bladder is decompressed. Uterus is surgically absent. IMPRESSION: 1. Tubular cystic appearance to the left lobe of the liver suggestive of a markedly dilated left hepatic lobe biliary system. This has progressed significantly since the prior CT from one year earlier. An obstructive process or mass cannot be entirely excluded. Again, MRCP may be useful for further characterization. No discrete mass can be visualized on this noncontrast CT. 2. Bilateral renal cysts and nonobstructing right renal calculus. Dictated by: Dictated on workstation # [id number]
== END ==
LOC: RAD 11-15 16:11
PROVIDERS: ATTEND Family Medicine
DX: K76.89 Other specified diseases of liver (principal); N20.0 Calculus of kidney; N28.1 Cyst of kidney, acquired; K52.9 Noninfective gastroenteritis and colitis, unspecified; R63.4 Abnormal weight loss
CPT/HCPCS: 74176

== ENCOUNTER → 2022-11-23 | Outpatient (CLI) | payer MEDICARE, OTHER ==
--- NOTE | 2022-11-23 17:03 | Diagnostic Imaging Report ---
EXAMINATION: MRI of the abdomen without contrast. MRCP TECHNIQUE: Multiplanar, multisequence MR images of the abdomen were obtained without intravenous contrast including 3D MIP MRCP images. HISTORY: Dilated bile ducts. COMPARISON: None available. FINDINGS: Common bile duct is mildly dilated. There are several filling defects in the common bile duct measuring up to 9 mm. The ducts in the left lateral section are markedly dilated with a high-grade stricture or obstruction at the confluence of the ducts. The ducts in the central and right liver are irregular with areas of beading. There is infiltrative T1 low attenuation in the hepatic hilum and extending along the right hepatic ducts. There is diffusion restriction in the hepatic hilum. Gallbladder: Absent. Pancreas: Normal. Spleen: Normal. Adrenals: There are unchanged bilateral adrenal nodules. These show signal loss on opposed-phase imaging in keeping with adenomas. Kidneys: No suspicious lesions. No hydronephrosis. There are simple cysts in both kidneys. Bowel: Normal. Other: There is a 1.0 cm gastrohepatic lymph node. Visualized portions of the thorax are normal. No suspicious osseous lesions. IMPRESSION: 1. Markedly dilated left hepatic ducts with irregular ducts in the central and right distribution. There is severe stricture or obstruction of the proximal left hepatic duct. There is infiltrative low T1 signal and diffusion restriction in the hepatic hilum. Findings are highly concerning for a hilar cholangiocarcinoma. GI evaluation for possible ERCP recommended. 2. Single enlarged gastro hepatic lymph node measuring 1.0 cm. Dictated by: Dictated on workstation # [id number]
== END ==
LOC: RAD 14:45
PROVIDERS: ATTEND Family Medicine
DX: K83.8 Other specified diseases of biliary tract (principal); R59.0 Localized enlarged lymph nodes
CPT/HCPCS: 74181

== ENCOUNTER 2023-01-14 14:26 | Emergency (ER) | payer MEDICARE, OTHER ==
[~2023-01-14] VITALS: Ht 170.2 cm; Wt 57.6 kg
--- NOTE | 2023-01-14 15:13 | ED Abdominal Pain ---
General Chief Complaint: Abdominal/GI Problems Stated Complaint: ABSCESS ON LIVER Nursing Triage Note: PT TO RM 4 BY WC WITH COMPLAINT OF RUQ PAIN. STATES HAD A PROCEDURE DONE TODAY BY DR WORTHY AND WAS INSTRUCTED TO COME TO ER FOR FURTHER CARE. Source of Information: Patient, Family () Exam Limitations: No Limitations (TL SANTOS MD) History of Present Illness Date Seen by Provider: Jan 14, 2023 Time Seen by Provider: 14:55 Initial Comments Patient is a 72-year-old female who presents to the emergency room with a chief complaint of abdominal pain status post liver biopsy. Patient has a history of primary sclerosing cholangitis and Crohn's disease. She is followed by Dr. Worthy GI specialist out of [place]. She had her liver biopsy this morning, she was told that she needed a CAT scan and possibly a drain in a possible abscess. She has been developing this enlarging lesion in the left lobe of the liver that Dr. Worthy states takes up approximately 75% of the left lobe and infiltrates to approximately 50% of the right lobe of the liver. He placed a metal stent in her bile duct and remove stones in December. 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 She is at great risk for developing cholangiocarcinoma secondary to her history of primary sclerosing cholangitis. She elected to come to [facility] because she lives locally. 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 Her CA 199 tumor marker is quite elevated. However, Dr. Worthy believes that this is more likely an abscess. She has been on oral Cipro and Flagyl recently. He gave her 500 mg of IV Levaquin postprocedure today. He thinks at the very least a CT needs to be done, he is calling [facility] to have her Gram stain done "stat". And will call me back with those results. Patient is complaining primarily of pain right now, no recent fevers or chills. Chronically poor appetite. N.p.o. status as last night. I did make the patient aware that we would most likely not be able to do a CT-guided drain placement here. Timing/Duration: 1-3 Hours Severity/Quality: Moderate Location: RUQ Radiation: No Radiation Activities at Onset: None (TL SANTOS MD) Allergies and Home Medications Allergies Coded Allergies: Penicillins (Unverified Allergy, Severe, WHEEZING, SWELLING, RASH, 01/19/12) minocycline (Verified Allergy, Unknown, blue mouth, 06/24/20) Patient Home Medication List Home Medication List Reviewed: Yes (TL SANTOS MD) Acetaminophen (Acetaminophen) 500 Mg Tablet, 500 MG PO TID, (Reported) Entered as Reported by: GEM GLEASON on 11/17/21 1712 Ascorbic Acid (Ascorbic Acid) 500 Mg Tablet, 500 MG PO DAILY, (Reported) Entered as Reported by: MICHAEL SCOTT on 06/24/20 1207 Atorvastatin Calcium (Atorvastatin Calcium) 10 Mg Tablet, 10 MG PO HS, (Reported) Entered as Reported by: SHIRLEY AVALOS on 11/18/21 1111 Calcium Carbonate (Calcium) 600 Mg Tablet, 1,200 MG PO DAILY, (Reported) Entered as Reported by: SHIRLEY AVALOS on 11/18/21 1111 Cetirizine HCl (Cetirizine HCl) 10 Mg Tablet, 10 MG PO HS, (Reported) Entered as Reported by: MICHAEL SCOTT on 06/24/20 1207 Cholecalciferol (Vitamin D3) (Vitamin D3) 50 Mcg Capsule, 100 MCG PO DAILY, (Reported) Entered as Reported by: SHIRLEY AVALOS on 11/18/21 1111 Dexamethasone (Dexamethasone) 1 Mg Tablet, 1 MG PO BID Prescribed by: FRANCESCO DASH on 11/23/21 0919 Docusate Sodium (Docusate Sodium) 100 Mg Tablet, 200 MG PO BID, (Reported) Entered as Reported by: SHIRLEY AVALOS on 11/18/21 1111 Estradiol (Estradiol Tablet) 0.5 Mg Tablet, 0.5 MG PO DAILY, (Reported) Entered as Reported by: SHIRLEY AVALOS on 11/18/21 1138 Hyoscyamine Sulfate (Oscimin) 0.125 Mg Tablet, 0.125 MG PO Q4H PRN for SPASMS Prescribed by: FRANCESCO DASH on 11/23/21 0919 Meclizine HCl (Meclizine HCl) 12.5 Mg Tablet, 25 MG PO QID PRN for DIZZINESS, (Reported) Entered as Reported by: GEM GLEASON on 11/17/211713 Metoprolol Succinate (Metoprolol Succinate) 25 Mg Tab.er.24h, 25 MG PO DAILY Prescribed by: FRANCESCO DASH on 11/23/21918 Nystatin (Nystatin) 100,000 Unit/1 Ml Oral.susp, 5 ML PO Q6HR Prescribed by: FRANCESCO DASH on 11/23/21918 Omeprazole (Omeprazole) 40 Mg Capsule.dr, 40 MG PO DAILY, (Reported) Entered as Reported by: MICHAEL SCOTT on 06/24/20 1207 Polyethylene Glycol 3350 (Miralax) 17 Gm Powd.pack, 17 GM PO DAILY PRN for CONSTIPATION-2ND LINE, (Reported) Entered as Reported by: SHIRLEY AVALOS on 11/18/21 1111 Tramadol HCl (Tramadol HCl) 50 Mg Tablet, 50 MG PO TID PRN for PAIN-MODERATE (5- 7), (Reported) Entered as Reported by: GEM GLEASON on 11/17/211711 Ursodiol (Ursodiol) 300 Mg Capsule, 600 MG PO BID, (Reported) Entered as Reported by: GEM GLEASON on 11/17/211712 Vitamin B Complex (B Complex) 1 Each Tablet, 1 EACH PO DAILY, (Reported) Entered as Reported by: GEM GLEASON on 11/17/211709 Review of Systems Review of Systems Constitutional: see HPI EENTM: No Symptoms Reported Respiratory: No Symptoms Reported Cardiovascular: No Symptoms Reported Gastrointestinal: Abdominal Pain, Poor Appetite Genitourinary: No Symptoms Reported Musculoskeletal: no symptoms reported Skin: no symptoms reported (TL SANTOS MD) Past Wtqqevw-Uutguw-Vaejal Hx Patient Social History Tobacco Use?: No Use of E-Cig and/or Vaping dev: No Substance use?: No Alcohol Use?: No Pt feels they are or have been: No (TL SANTOS MD) Immunizations Up To Date First/Initial COVID19 Vaccinat: 12/09/20 Second COVID19 Vaccination Rashawn: 12/09/20 Third COVID19 Vaccination Date: 12/09/20 (TL SANTOS MD) Seasonal Allergies Seasonal Allergies: Yes (TL SANTOS MD) Past Medical History Surgery/Hospitalization HX: hypertension, orthostatic hypotension Surgeries: Yes (SIGMOIDECTOMY, CATARACTS, D&C, A&P REPAIR. LIVER BX) Gallbladder, Hysterectomy, Oophorectomy, Tubal Ligation Respiratory: No Currently Using CPAP: No Currently Using BIPAP: No Cardiac: Yes High Cholesterol, Hypertension Neurological: No Reproductive Disorders: Yes Sexually Transmitted Disease: No HIV/AIDS: No Genitourinary: No Gastrointestinal: Yes (biliary cholangitis) Liver Disease/Jaundice, Chronic Constipation, Diverticulosis, Gall Bladder Disease Musculoskeletal: Yes (BULGING DISC C5, C6) Arthritis Endocrine: No HEENT: Yes (GLASSES) Loss of Vision: Denies Hearing Impairment: Denies Cancer: No Psychosocial: No Integumentary: No Blood Disorders: Yes (Leukocytosis) Adverse Reaction/Blood Tranf: No (HAS HAD BLOOD WITH NO REACTION) (TL SANTOS MD) Family Medical History No Pertinent Family Hx (TL SANTOS MD) Physical Exam Vital Signs Vital Signs - First Documented 01/14/23 14:40 Temp 35.7 Pulse 94 Resp 16 B/P (MAP) 115/54 (74) Pulse Ox 100 O2 Delivery Room Air (GRAHAM,PREET L DO) Vital Signs Capillary Refill : Less Than 3 Seconds (TL SANTOS MD) Height/Weight/BMI Height: 5'9.00" Weight: 205lbs. 9.0oz. 93.767522ps; 19.00 BMI Method:Actual General Appearance: no apparent distress, thin HEENT: PERRL/EOMI Respiratory: normal breath sounds, no respiratory distress, no accessory muscle use Cardiovascular: regular rate, rhythm Gastrointestinal: abnormal bowel sounds (Hypoactive); No distended; tenderness (Right upper quadrant) Extremities: normal range of motion, normal inspection Neurologic/Psychiatric: alert, normal mood/affect, oriented x 3 Skin: warm/dry, pallor (Almost jaundiced look to her skin) (TL SANTOS MD) Focused Exam Lactate Level 01/14/23 15:36: Lactic Acid Level 2.01*H 01/14/23 17:52: Lactic Acid Level 1.21 (GRAHAM,PREET L DO) Lactic Acid Level Laboratory Tests Test 01/14/23 15:36 01/14/23 17:52 Lactic Acid Level 2.01 MMOL/L (0.50-2.00) *H 1.21 MMOL/L (0.50-2.00) (PREET GRAHAM DO) Progress/Results/Core Measures Results/Orders Lab Results Laboratory Tests Test 01/14/23 14:57 01/14/23 15:36 01/14/23 17:52 Range/Units White Blood Count 39.6 *H 4.3-11.0 10^3/uL Red Blood Count 2.51 L 3.80-5.11 10^6/uL Hemoglobin 7.7 L 11.5-16.0 g/dL Hematocrit 23 L 35-52 % Mean Corpuscular Volume 91 80-99 fL Mean Corpuscular Hemoglobin 31 25-34 pg Mean Corpuscular Hemoglobin Concent 34 32-36 g/dL Red Cell Distribution Width 16.0 H 10.0-14.5 % Platelet Count 272 130-400 10^3/uL Mean Platelet Volume 10.9 9.0-12.2 fL Immature Granulocyte % (Auto) 1 % Neutrophils (%) (Auto) 94 H 42-75 % Lymphocytes (%) (Auto) 3 L 12-44 % Monocytes (%) (Auto) 2 0-12 % Eosinophils (%) (Auto) 0 0-10 % Basophils (%) (Auto) 0 0-10 % Neutrophils # (Auto) 37.2 H 1.8-7.8 10^3/uL Lymphocytes # (Auto) 1.2 1.0-4.0 10^3/uL Monocytes # (Auto) 0.8 0.0-1.0 10^3/uL Eosinophils # (Auto) 0.0 0.0-0.3 10^3/uL Basophils # (Auto) 0.1 0.0-0.1 10^3/uL Immature Granulocyte # (Auto) 0.3 H 0.0-0.1 10^3/uL Neutrophils % (Manual) 94 % Lymphocytes % (Manual) 3 % Monocytes % (Manual) 2 % Eosinophils % (Manual) 1 % Basophils % (Manual) 0 % Band Neutrophils 0 % Polychromasia SLIGHT Hypochromasia SLIGHT Anisocytosis SLIGHT Sodium Level 135 135-145 MMOL/L Potassium Level 3.5 L 3.6-5.0 MMOL/L Chloride Level 109 H 98-107 MMOL/L Carbon Dioxide Level 15 L 21-32 MMOL/L Anion Gap 11 5-14 MMOL/L Blood Urea Nitrogen 21 H 7-18 MG/DL Creatinine 0.71 0.60-1.30 MG/DL Estimat Glomerular Filtration Rate 90 BUN/Creatinine Ratio 30 Glucose Level 89 70-105 MG/DL Calcium Level 9.1 8.5-10.1 MG/DL Corrected Calcium 10.6 H 8.5-10.1 MG/DL Total Bilirubin 2.3 H 0.1-1.0 MG/DL Aspartate Amino Transf (AST/SGOT) 56 H 5-34 U/L Alanine Aminotransferase (ALT/SGPT) 52 0-55 U/L Alkaline Phosphatase 361 H 40-136 U/L Total Protein 6.5 6.4-8.2 GM/DL Albumin 2.1 L 3.2-4.5 GM/DL Lactic Acid Level 2.01 *H 1.21 0.50-2.00 MMOL/L (GRAHAM,PREET L DO) Medications Given in ED Current Medications Medications Dose Ordered Sig/[place] Route Start Time Stop Time Status Last Admin Dose Admin Fentanyl Citrate 50 mcg ONCE ONCE IVP 01/14/23 15:15 01/14/23 15:16 DC 01/14/23 15:39 50 MCG Iohexol 100 ml ONCE ONCE IV 01/14/23 16:00 01/14/23 16:01 DC 01/14/23 16:30 66 ML Sodium Chloride 100 ml ONCE ONCE IV 01/14/23 16:00 01/14/23 16:01 DC 01/14/23 16:30 80 ML (GRAHAM,PREET L DO) Vital Signs/I&O 01/14/23 01/14/23 14:40 19:15 Temp 35.7 36.2 Pulse 94 100 Resp 16 16 B/P (MAP) 115/54 (74) 110/64 (79) Pulse Ox 100 99 O2 Delivery Room Air Room Air (GRAHAM,PREET L DO) Blood Pressure Mean: 74 Progress Progress Note : Time: 18:21 Progress Note Patient seen and evaluated by me. 72-year-old with a history of primary sclerosing cholangitis. Evaluation today includes physical exam, CBC, Chem-12, lactic acid and CT scan of the abdomen and pelvis with IV contrast. Physical exam pertinent for thin almost emaciated elderly female who is pale in no acute distress. Heart is regular, lungs are clear. Abdomen is diffusely tender, hypoactive bowel sounds. Poor skin turgor. No focal neurologic deficits. Differential diagnosis based on history and physical exam, sepsis, worsening intrahepatic infection/abscess, biliary obstruction Labs evaluated by me, CBC shows significant elevation of her white blood cell count at 39,000. Anemia, hemoglobin of 7.7. Platelets 272. Chemistry shows depressed CO2, elevated total bili. Liver functions slightly increased. Normal renal function. Lactic acid right at 2.0. CT scan of the abdomen and pelvis with IV contrast as read by the radiologist shows massively dilated intrahepatic ducts greatest at 9 x 5 cm. Minimal pneumoperitoneum small amount of ascites no subcapsular hematoma. I spoke at length with the patient's GI doctor, Dr. Rey Worthy who indicated he felt the patient would be best served with an intrahepatic drain placement. He advised me this afternoon at approximately 1730 the patient's Gram stain was positive for white blood cells and 2+ gram-negative rods. Consistent with infection as opposed to cholangiocarcinoma which was in his differential. I discussed management and plan of care with the patient. We will contact to see if they have bed availability for drain placement. I do suspect even though the patient has longstanding myelodysplastic disorder with total elevated white count and the 19/20,000 range normally with her 39,000 white count, elevated lactic and left shift on CBC she does have evidence of systemic infection as well. Care passed to Dr Graham with disposition pending. Awaiting callback from . (TL SANTOS MD) Diagnostic Imaging Diagonstic Imaging: CT Comments [facility], [place] NAME: MAICO [facility] REC#: [id number] PT STATUS: REG ER : 1950 PHYSICIAN: TL SANTOS MD ADMIT DATE: 01/14/23/ER Signed Date of Exam:01/14/23 CT ABDOMEN/PELVIS W CT ABDOMEN/PELVIS W TECHNIQUE: Multiple contiguous axial images were obtained through the abdomen and pelvis after administration of intravenous contrast. All CT scans use one or more of the following dose optimizing techniques: Automated exposure control, MA and/or KvP adjustment based on patient size and exam type or iterative reconstruction. INDICATION: Abdominal pain after liver biopsy. COMPARISON: CT of 11/16/2022 and MRI abdomen of 11/23/2022. FINDINGS: Lower chest: The lung bases are clear. No pericardial or pleural effusion. Peritoneum: A small amount of simple ascites is present in the pelvis. No loculated fluid collections. No free intraperitoneal air. Liver and biliary system: Unchanged severe dilation of the left intrahepatic bile ducts. Mildly dilated bile ducts in the right hepatic lobe persist. Metal stent within the common bile duct is new since prior examination. No subcapsular hematoma or features of active bleed within the liver. Spleen and Pancreas: Spleen is normal. The pancreas enhances normally without mass lesion or peripancreatic inflammatory changes. Adrenals: Stable bilateral adrenal adenomas. tract: The kidneys enhance normally without suspicious mass or obstruction. Urinary bladder is distended without wall thickening. Nonobstructing 4 mm stone in the upper pole of the right kidney. GI tract: Stomach is decompressed. No bowel obstruction. No pericolonic inflammatory changes. Appendix is normal. Vasculature and Lymph nodes: Normal-caliber abdominal aorta. Nonocclusive plaque or thrombus is present in the celiac artery. Enlarged gastrohepatic ligament lymph node is unchanged at 1 cm. Musculoskeletal: No concerning osseous lesion. IMPRESSION: 1. No active bleed within liver, and no subcapsular hematoma. 2. Stable abnormal dilation of the intrahepatic bile ducts with a new biliary stent now located in the common bile duct. 3. A small amount of nonocclusive thrombus is present in the celiac artery at its origin. 4. Small-volume ascites and pneumoperitoneum. Dictated by: Dictated on workstation # [id number] Dict: 01/14/23 1638 Trans: 01/14/23 1704 [id number] Interpreted by: KATHRIN RUFF MD Electronically signed by: KATHRIN RUFF MD 01/14/23 1704 (TL SANTOS MD) Departure Communication (Admissions) Time/Spoke to Consulting Phy: 15:[address] Worthy (GI) (TL SANTOS MD) Impression Primary Impression: Abnormal CT of the abdomen Additional Impressions: Intrahepatic bile duct dilation Sclerosing cholangitis Disposition: XF S[facility]-TRM HOSP Condition: Stable Transfer Transfer Reason: Exceeds level of care Time Spoke to Accepting Phy: 19:35 Transfer Progress Notes accepting Dr Gudino Transfer Time: 19:41 Transfer Facility: [facility] Method of Transfer: Private Vehicle (PREET GRAHAM DO) Departure-Patient Inst. Referrals: DAVID FOSS DO (PCP/Family) Primary Care Physician TL SANTOS MD Jan 14, 2023 15:13 PREET GRAHAM DO Jan 14, 2023 19:42
[2023-01-14] MEDS ORDERED: fentaNYL INJ 100 MCG/2 ML AMP IVP ONE (15:15)
[2023-01-14 15:16] LABS: BASOPHILS # (AUTO) 0.1 10^3/uL (0.0-0.1); BASOPHILS % (AUTO) 0 % (0-10); EOSINOPHILS % (AUTO) 0 % (0-10); HEMATOCRIT 23 % (35-52); HEMOGLOBIN 7.7 g/dL (11.5-16.0); LYMPHOCYTES # (AUTO) 1.2 10^3/uL (1.0-4.0); LYMPHOCYTES % (AUTO) 3 % (12-44); MEAN CORPUSCULAR HEMOGLOBIN 31 pg (25-34); MEAN CORPUSCULAR HGB CONC 34 g/dL (32-36); MEAN CORPUSCULAR VOLUME 91 fL (80-99); MEAN PLATELET VOLUME 10.9 fL (9.0-12.2); MONOCYTES # (AUTO) 0.8 10^3/uL (0.0-1.0); MONOCYTES % (AUTO) 2 % (0-12); NEUTROPHILS # (AUTO) 37.2 10^3/uL (1.8-7.8); NEUTROPHILS % (AUTO) 94 % (42-75); PLATELET COUNT 272 10^3/uL (130-400)
[2023-01-14 15:17] LABS: ALBUMIN 2.1 GM/DL (3.2-4.5)
[2023-01-14 15:18] LABS: POTASSIUM 3.5 MMOL/L (3.6-5.0)
[2023-01-14 15:19] LABS: CALCIUM 9.1 MG/DL (8.5-10.1)
[2023-01-14 15:20] LABS: TOTAL PROTEIN 6.5 GM/DL (6.4-8.2)
[2023-01-14 15:22] LABS: BILIRUBIN,TOTAL 2.3 MG/DL (0.1-1.0)
[2023-01-14 15:24] LABS: CREATININE SERUM 0.71 MG/DL (0.60-1.30)
[2023-01-14 15:28] LABS: WHITE BLOOD COUNT 39.6 10^3/uL (4.3-11.0)
[2023-01-14] MEDS ORDERED: IOHEXOL 350 MG/ML 100 ML (OMNIPAQUE 350) VIAL IV ONE (16:00)
[2023-01-14] MEDS ORDERED: NS 100 ML (IVPB) BAG IV ONE (16:00)
[2023-01-14 16:01] LABS: ANISOCYTOSIS SLIGHT; BAND NEUTROPHILS 0 %; BASOPHILS % (MANUAL) 0 %; EOSINOPHILS % (MANUAL) 1 %; HYPOCHROMASIA SLIGHT; LYMPHOCYTES % (MANUAL) 3 %; MONOCYTES % (MANUAL) 2 %; NEUTROPHILS % (MANUAL) 94 %; POLYCHROMASIA SLIGHT
[2023-01-14] MEDS ORDERED: NS IV 1000 ML 1,000 ML IV STA (16:26)
--- NOTE | 2023-01-14 16:53 | Diagnostic Imaging Report ---
CT ABDOMEN/PELVIS W TECHNIQUE: Multiple contiguous axial images were obtained through the abdomen and pelvis after administration of intravenous contrast. All CT scans use one or more of the following dose optimizing techniques: Automated exposure control, MA and/or KvP adjustment based on patient size and exam type or iterative reconstruction. INDICATION: Abdominal pain after liver biopsy. COMPARISON: CT of 11/16/2022 and MRI abdomen of 11/23/2022. FINDINGS: Lower chest: The lung bases are clear. No pericardial or pleural effusion. Peritoneum: A small amount of simple ascites is present in the pelvis. No loculated fluid collections. No free intraperitoneal air. Liver and biliary system: Unchanged severe dilation of the left intrahepatic bile ducts. Mildly dilated bile ducts in the right hepatic lobe persist. Metal stent within the common bile duct is new since prior examination. No subcapsular hematoma or features of active bleed within the liver. Spleen and Pancreas: Spleen is normal. The pancreas enhances normally without mass lesion or peripancreatic inflammatory changes. Adrenals: Stable bilateral adrenal adenomas. tract: The kidneys enhance normally without suspicious mass or obstruction. Urinary bladder is distended without wall thickening. Nonobstructing 4 mm stone in the upper pole of the right kidney. GI tract: Stomach is decompressed. No bowel obstruction. No pericolonic inflammatory changes. Appendix is normal. Vasculature and Lymph nodes: Normal-caliber abdominal aorta. Nonocclusive plaque or thrombus is present in the celiac artery. Enlarged gastrohepatic ligament lymph node is unchanged at 1 cm. Musculoskeletal: No concerning osseous lesion. IMPRESSION: 1. No active bleed within liver, and no subcapsular hematoma. 2. Stable abnormal dilation of the intrahepatic bile ducts with a new biliary stent now located in the common bile duct. 3. A small amount of nonocclusive thrombus is present in the celiac artery at its origin. 4. Small-volume ascites and pneumoperitoneum. Dictated by: Dictated on workstation # [id number]
[2023-01-14 20:39] VITALS: BP 105/69
== END 2023-01-14 20:40 | disposition short-term general hospital (02) ==
LOC: EDUNIT# 14:26 → ER 14:28
DX: K83.09 Other cholangitis (principal); K83.8 Other specified diseases of biliary tract; R74.02 Elevation of levels of lactic acid dehydrogenase [LDH]; R65.11 Systemic inflammatory response syndrome (SIRS) of non-infectious origin with acute organ dysfunction; R93.5 Abnormal findings on diagnostic imaging of other abdominal regions, including retroperitoneum; D72.829 Elevated white blood cell count, unspecified; D64.9 Anemia, unspecified; Z90.49 Acquired absence of other specified parts of digestive tract
CPT/HCPCS: 36415; 74177; 80053; 83605; 85007; 85027; 87040